=== PATIENT | female | born 2000 | race African-American/Black ===

== ENCOUNTER 2020-03-10 21:50 | Emergency (ER) | payer OTHER ==
[~2020-03-10] VITALS: Ht 165.1 cm; Wt 95.5 kg
--- NOTE | 2020-03-10 22:39 | ED.ADGEN ---
Past Medical History Past Medical History: Angina, Asthma Past Surgical History: Tonsillectomy Smoking Status: Never Smoker Alcohol Use: None General Adult EDM: Chief Complaint: SHORTNESS OF BREATH HPI: HPI: Patient is a 19 year old AA F[employer]ale who presents emergency department with complaints of a burning sensation in her throat. Patient states she was at work today when a bag of powdered pesticide broke in her face. Patient states she was wearing a cloth mask at the time but felt like she inhaled some of the pesticide. Patient states she called poison control and they told her to just drink a lot of water. This incident happened approximately 12 hours prior to patient arrival to the ER. She denies any hemoptysis, shortness of breath, wheezing, stridor, difficulty swallowing, chest pain, palpitations, nausea, vomiting, diarrhea, or abdominal pain. She also reports having increased anxiety today because after the incident at work she had to deal with a bunch of family drama involving her sister. Patient denies any suicidal or homicidal ideations. She rates the discomfort in her throat a 5 out of 10 on the pain scale, she denies any alleviating or exacerbating factors. Review of Systems: Review of Systems: Complete ROS is negative unless otherwise noted in HPI. Current Medications: Current Medications Medications (Trade) Dose Ordered Sig/Alex Start Time Stop Time Status Last Admin Dose Admin Alprazolam (Xanax) 0.25 mg 1X ONCE 03/10/20 23:00 03/10/20 23:01 DC 03/10/20 22:38 0.25 MG Multi-Ingredient Mouthwash/Gargle (Gi Cocktail) 20 ml 1X ONCE 03/10/20 23:00 03/10/20 23:01 DC 03/10/20 22:38 20 ML Allergies: Allergies: Allergies Coded Allergies Type Severity Reaction Last Updated Verified No Known Drug Allergies 03/10/20 No Physical Exam: PE: See Above Constitutional: Well developed, well nourished, no acute distress, non-toxic appearance. [] HENT: Normocephalic, atraumatic, bilateral external ears normal, nose normal. [] Eyes: PERRLA, EOMI, conjunctiva normal, no discharge. [] Neck: Normal range of motion, no stridor. [] Cardiovascular:Heart rate regular rhythm Lungs & Thorax: Respirations even and unlabored, no retractions, no respiratory distress Skin: Warm, dry, no erythema, no rash. [] Extremities: No cyanosis, ROM intact, no edema. [] Neurologic: Alert and oriented X 3, no focal deficits noted. [] Psychologic: Affect tearful, judgement normal, mood stressed Current Patient Data: Vital Signs: Vital Signs Date Time Temp Pulse Resp B/P (MAP) Pulse Ox O2 Delivery O2 Flow Rate FiO2 03/10/20 23:15 98.0 67 16 116/72 (87) 100 Room Air 98.0 EKG: EKG: [] Heart Score: Risk Factors: Risk Factors: DM, Current or recent (<one month) smoker, HTN, HLP, family history of CAD, obesity. Risk Scores: Score 0 - 3: 2.5% MACE over next 6 weeks - Discharge Home Score 4 - 6: 20.3% MACE over next 6 weeks - Admit for Clinical Observation Score 7 - 10: 72.7% MACE over next 6 weeks - Early Invasive Strategies Radiology/Procedures: Radiology/Procedures: [] Course & Med Decision Making: Course & Med Decision Making Pertinent Labs and Imaging studies reviewed. (See chart for details) 19-year-old female presents emergency department with complaints of anxiety and a burning sensation in her throat or accidentally being exposed to possibly inhaling some pesticide at work. Patient was given 0.25 mg of Xanax and a GI cocktail in the emergency department she was able to drink several of water and states she feels better after these medications. I encouraged the patient to continue drinking water advised her that dilution is the solution to this chemical exposure, just as poison control had formed her earlier. Patient was instructed to return to the ER if she develops shortness of breath, difficulty breathing, difficulty swallowing. Patient verbalized an understanding of home care, medications, follow-up, and return to ED instructions and was in agreement with the plan of care. [] Dragon Disclaimer: Dragon Disclaimer: This electronic medical record was generated, in whole or in part, using a voice recognition dictation system. Departure Departure Impression: Primary Impression: Irritated throat Additional Impressions: Chemical exposure Anxiety as acute reaction to exceptional stress Disposition: 01 DC HOME SELF CARE/HOMELESS Condition: STABLE Patient Instructions: Anxiety and Panic Attacks, [id number], Chemical Inhalation Additional Instructions: Continue to drink water, remember dilution is the solution. Recommend to go home and rest follow-up with your primary care doctor if symptoms worsen. Return to the ER if your symptoms worsen or if you develop shortness of breath, difficulty breathing, or difficulty swallowing. It was my pleasure taking care of you today, thank you for choosing [facility]! Attending Signature Attending Signature I have reviewed the PA/QUALITATIVE EXECUTIVE RESEARCHER's note and plan of care. I was available for consultation as needed during the patient's visit in the emergency department. I agree with the clinical impression, plan, and disposition. Problem Qualifiers NATHANAEL PEARSON APRN Mar 10, 2020 22:39 CHRISTENSENMAYRA DO Mar 11, 2020 00:15
[2020-03-10] MEDS ORDERED: LIDO:MAALOX 1:1 20 ML SINGLE DOSE. SWSW ONE (23:00)
[2020-03-10] MEDS ORDERED: ALPRAZolam 0.25 MG TABLET PO ONE (23:00)
[2020-03-10 23:15] VITALS: BP 116/72
== END 2020-03-10 23:15 | disposition home or self-care (01) ==
LOC: ER 21:50
DX: J39.2 Other diseases of pharynx (principal); F41.9 Anxiety disorder, unspecified; F43.9 Reaction to severe stress, unspecified; Z77.098 Contact with and (suspected) exposure to other hazardous, chiefly nonmedicinal, chemicals; J45.909 Unspecified asthma, uncomplicated
CPT/HCPCS: 99283